=== PATIENT | female | born 1980 | race Caucasian/White ===

== ENCOUNTER 2017-03-03 22:39 | Emergency (ER) | payer OTHER ==
[~2017-03-03] VITALS: Ht 165.1 cm; Wt 97.7 kg
[~2017-03-03 22:39] MED LIST: "\\\"WATER PILL\\\"" PO; AMOXICILLIN/CL875 MG PO; ANUCORT-HC25 MG RE; ASPIRIN EC81 MG PO; AUGMENTIN500TAB PO; BUSPAR10 M1 PO; BUSPAR5 M1 PO; CIPRO500 MG OR; CLONAZEP ODT1 MG PO; CLONAZEPAM0.5 MG PO; COLACE100 MG PO; DOXYCYCL HYC100 MG PO; FLEXERIL OR; FLEXERIL PO; GABAPENTIN300 MG PO; GENTAMICIN SULF5 ML OP; GLIPIZIDE5 M2 PO; GLUCOTROL XL5 MG PO; HYDROCHLOROT12.5 MG PO; HYDROCORTISO2.51 EX; KEFLEX500 MG PO; LISINOP/HCTZ1 TA1 OR; LISINOP/HCTZ1 TAB PO; LISINOPRIL5 MG PO; LORTAB 5 OR; LORTAB 7.5 OR; LORTAB 7.5-3251 TAB PO; LOSARTAN POT25 MG PO; MELOXICAM15 MG PO; METFORMIN1000 MG PO; METFORMIN500 M1 OR; METFORMIN500 MG PO; MIRALAX3350 NF PO; NAPROSYN500 MG OR; NEURONTIN100 MG PO; NO HOME MEDS; ORPHENADRINE100 MG PO; PEPCID20 MG PO; PERCOCET 5/325M1 TAB PO; PRENATABS OR; PROVENTIL0.083 % IN; SINGULAIR PO; TESSALON PER100 MG PO; ULTRAM50 M1 PO; ZESTRIL5 M1 PO; ZOFRAN4 MG/TAB PO
[2017-03-04 00:10] VITALS: BP 152/93
== END 2017-03-04 00:10 | disposition home or self-care (01) | DRG 918 ==
LOC: ED 22:39
DX: T63.461A Toxic effect of venom of wasps, accidental (unintentional), initial encounter (principal)

== ENCOUNTER 2017-04-12 12:35 | Emergency (ER) | payer OTHER ==
[~2017-04-12] VITALS: Ht 165.1 cm; Wt 104.4 kg
[2017-04-12] MEDS ORDERED: TRAZODONE50 MG PO (15:57)
[2017-04-12] MEDS ORDERED: LOSARTAN POT25 MG PO (15:58)
[2017-04-12] MEDS ORDERED: NAPROSYN250 MG PO (15:58)
[2017-04-12] MEDS ORDERED: SERTRALINE HCL25 MG PO (15:58)
[2017-04-12] MEDS ORDERED: AMBIEN5 MG PO (15:58)
[2017-04-12] MEDS ORDERED: VENLAFAXINE H37.5 MG PO (15:59)
[2017-04-12] MEDS ORDERED: LORTAB 5-325 MG1 TAB PO (16:02)
[2017-04-12] MEDS ORDERED: MOTRIN800 MG PO (16:02)
[2017-04-12 16:04] VITALS: BP 130/78
== END 2017-04-12 16:08 | disposition home or self-care (01) | DRG 538 ==
LOC: ED 12:35
DX: S76.911A Strain of unspecified muscles, fascia and tendons at thigh level, right thigh, initial encounter (principal); I10 Essential (primary) hypertension; S96.911A Strain of unspecified muscle and tendon at ankle and foot level, right foot, initial encounter; E11.9 Type 2 diabetes mellitus without complications; F41.9 Anxiety disorder, unspecified; G89.29 Other chronic pain; M54.9 Dorsalgia, unspecified; W18.2XXA Fall in (into) shower or empty bathtub, initial encounter; Y93.E1 Activity, personal bathing and showering; Y92.002 Bathroom of unspecified non-institutional (private) residence as the place of occurrence of the external cause

== ENCOUNTER 2020-02-14 | Emergency (ER) | payer MEDICAID ==
[~2020-02-14] MED LIST changes: +AMBIEN5 MG PO; +BACTRIM DS1 TAB PO; +KEFLEX500 M1 PO; +KLONOPIN0.5 MG PO; +LORTAB 5-325 MG1 TAB PO; +MOTRIN800 MG PO; +NAPROSYN250 MG PO; +SERTRALINE HCL25 MG PO; +TRAZODONE50 MG PO; +VENLAFAXINE H37.5 MG PO
[2020-02-14] MEDS ORDERED: MECLIZINE25 MG PO ×2 (11:47)
[2020-02-14] MEDS ORDERED: CLONAZEPAM1 M1 PO (12:06)
== END 2020-02-14 12:00 | disposition home or self-care (01) | DRG 156 ==
DX: H92.02 Otalgia, left ear (principal); R42 Dizziness and giddiness; R51 Headache; I10 Essential (primary) hypertension; E11.9 Type 2 diabetes mellitus without complications; F17.210 Nicotine dependence, cigarettes, uncomplicated; Z79.84 Long term (current) use of oral hypoglycemic drugs

== ENCOUNTER 2020-06-19 19:00 | Emergency (ER) | payer MEDICAID ==
[~2020-06-19] VITALS: Ht 165.1 cm; Wt 86.4 kg
[~2020-06-19 19:00] MED LIST changes: +CLONAZEPAM1 M1 PO; +MECLIZINE25 MG PO
[2020-06-19] MEDS ORDERED: VOLTAREN - GENE75 MG PO (20:22)
[2020-06-19 20:38] VITALS: BP 149/77
== END 2020-06-19 20:38 | disposition home or self-care (01) ==
LOC: ED 19:00
DX: S90.31XA Contusion of right foot, initial encounter (principal); E11.9 Type 2 diabetes mellitus without complications; I10 Essential (primary) hypertension; F17.210 Nicotine dependence, cigarettes, uncomplicated; W20.8XXA Other cause of strike by thrown, projected or falling object, initial encounter; Y92.009 Unspecified place in unspecified non-institutional (private) residence as the place of occurrence of the external cause

== ENCOUNTER 2020-11-02 01:05 | Emergency (ER) | payer MEDICAID ==
[~2020-11-02] VITALS: Ht 165.1 cm; Wt 98.6 kg
[~2020-11-02 01:05] MED LIST changes: +VOLTAREN - GENE75 MG PO
[2020-11-02] MEDS ORDERED: BACTRIM DS1 TAB PO (01:27)
[2020-11-02] MEDS ORDERED: GLIPIZIDE5 MG PO (01:30)
[2020-11-02] MEDS ORDERED: XANAX0.25 MG PO (01:31)
[2020-11-02] MEDS ORDERED: METFORMIN500 M2 PO (01:31)
[2020-11-02 01:45] VITALS: BP 153/74
== END 2020-11-02 01:45 | disposition home or self-care (01) ==
LOC: ED 01:05
DX: L60.0 Ingrowing nail (principal); E11.9 Type 2 diabetes mellitus without complications; I10 Essential (primary) hypertension; F17.200 Nicotine dependence, unspecified, uncomplicated

== ENCOUNTER 2021-02-24 | Emergency (ER) | payer MEDICAID ==
[~2021-02-24] MED LIST changes: +GLIPIZIDE5 MG PO; +METFORMIN500 M2 PO; +XANAX0.25 MG PO
[2021-02-24 17:08] LABS: HEMATOCRIT 39.6 % (37.0-47.0); HEMOGLOBIN 12.7 g/dl (12.0-16.0); IMMATURE GRANULOCYTES 0.7 % (0.0-5.0); MEAN CELL VOLUME 83.7 fL CALC (80.0-100.0); MEAN CORPUSCULAR HGB 26.8 pG CALC (26.0-32.0); MEAN CORPUSCULAR HGB CONC 32.1 g/dL CAL (32.0-36.0); NEUT# 6.77 thou/uL (2.00-7.15); RED BLOOD COUNT 4.73 mill/uL (4.20-5.60); RED CELL DISTRI WIDTH 14.9 % (11.5-15.5)
[2021-02-24 17:52] LABS: ALKALINE PHOSPHATASE 97 u/l (38-126); BUN 5 mg/dL (7-17); BUN/CREATININE RATIO 12 (12-20 (CALC)); CARBON DIOXIDE 21 mmol/l (22-30); CHLORIDE 101 mmol/l (95-108); CREATININE 0.4 mg/dL (0.5-1.0); GFR > 60 ML/MIN (>=60 (CALC)); GFR FOR AFR.AMER. > 60 ML/MIN (>=60 (CALC)); POTASSIUM 4.4 mmol/l (3.5-5.1); SGOT/AST 30 u/l (14-36); TOTAL PROTEIN 7.5 g/dL (6.3-8.2)
[2021-02-24 17:53] LABS: ANION GAP 13 (6-22 (CALC)); BILIRUBIN, TOTAL 0.6 mg/dL (0.0-1.4); SODIUM 131 mmol/l (137-146)
[2021-02-24] MEDS ORDERED: TRULICITY0.75 MG/0. (18:24)
[2021-02-24] MEDS ORDERED: MECLIZINE25 MG PO (19:27)
== END 2021-02-24 19:35 | disposition home or self-care (01) ==
PROVIDERS: Emergency Medicine
DX: R42 Dizziness and giddiness (principal); E11.9 Type 2 diabetes mellitus without complications; I10 Essential (primary) hypertension; F17.200 Nicotine dependence, unspecified, uncomplicated; Z79.84 Long term (current) use of oral hypoglycemic drugs

== ENCOUNTER 2021-06-24 15:08 | Inpatient (IN) | payer MEDICAID ==
[~2021-06-24] VITALS: Ht 165.1 cm; Wt 105.0 kg
[~2021-06-24 15:08] MED LIST changes: +TRULICITY0.75 MG/0.
--- NOTE | 2021-06-24 15:10 | NUR ---
PATIENT SEEN IN OUTSIDE WAITING AREA. 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 ASKED TO RAISE EYEBROWS AND FOREHEAD SHOWS NO WRINKLE LINES ON RIGHT SIDE. PATIENT UPON SMILING HAS FROZEN RIGHT SIDE OF LIPS THAT ARE UNABLE TO MOVE. MD NOTIFIED OF PATIENT STATUS
--- NOTE | 2021-06-24 15:28 | NUR ---
MD IN ROOM PATIENT UNABLE TO FOLLOW COMMAND AND HAS DYSARTHRIA. STROKE ALERT CALLED AND PATIENT TAKEN TO CT SCAN
[2021-06-24 15:57] LABS: HEMATOCRIT 43.5 % (37.0-47.0); HEMOGLOBIN 14.1 g/dl (12.0-16.0); IMMATURE GRANULOCYTES 0.5 % (0.0-5.0); MEAN CELL VOLUME 83.2 fL CALC (80.0-100.0); MEAN CORPUSCULAR HGB CONC 32.4 g/dL CAL (32.0-36.0); NEUT# 6.27 thou/uL (2.00-7.15); RED BLOOD COUNT 5.23 mill/uL (4.20-5.60)
[2021-06-24 16:12] LABS: ALBUMIN 4.2 g/dL (3.2-5.0); ALKALINE PHOSPHATASE 107 u/l (38-126); ANION GAP 18 (6-22 (CALC)); BILIRUBIN, TOTAL 0.4 mg/dL (0.0-1.4); BUN 12 mg/dL (7-17); BUN/CREATININE RATIO 25 (12-20 (CALC)); CARBON DIOXIDE 22 mmol/l (22-30); CHLORIDE 95 mmol/l (95-108); CREATININE 0.5 mg/dL (0.5-1.0); ETHYL ALCOHOL 0 mg/dl (0-30); GFR > 60 ML/MIN (>=60 (CALC)); GFR FOR AFR.AMER. > 60 ML/MIN (>=60 (CALC)); LIPASE 360 u/l (23-300); MAGNESIUM 1.6 mg/dL (1.6-2.3); POTASSIUM 4.7 mmol/l (3.5-5.1); SGOT/AST 29 u/l (14-36); SODIUM 130 mmol/l (137-146); TOTAL PROTEIN 7.3 g/dL (6.3-8.2)
[2021-06-24 16:41] LABS: TSH, 3RD GENERATION 1.61 uIU/mL (0.47 - 4.68)
--- NOTE | 2021-06-24 17:02 | NUR ---
WATER OFFERD TO PATIENT
[2021-06-24 17:17] LABS: URINE BILIRUBIN - DIPSTICK NEGATIVE (NEGATIVE); URINE BLOOD DIPSTICK NEGATIVE (NEGATIVE); URINE COLOR YELLOW; URINE GLUCOSE - DIPSTICK >=1000 mg/dL (NEGATIVE); URINE KETONE NEGATIVE (NEGATIVE); URINE LEUK ESTERASE NEGATIVE (NEGATIVE); URINE PROTEIN - DIPSTICK NEGATIVE (NEG-TRACE); URINE SPECIFIC GRAVITY <=1.005; URINE UROBILINOGEN - DIPSTICK 0.2 E.U./dL (0.2)
[2021-06-24 17:20] LABS: URINE NITRITE - DIPSTICK NEGATIVE (Negative)
[2021-06-24 18:06] LABS: ANION GAP 14 (6-22 (CALC)); BUN 11 mg/dL (7-17); BUN/CREATININE RATIO 26 (12-20 (CALC)); CARBON DIOXIDE 22 mmol/l (22-30); CHLORIDE 99 mmol/l (95-108); CREATININE 0.4 mg/dL (0.5-1.0); GFR > 60 ML/MIN (>=60 (CALC)); GFR FOR AFR.AMER. > 60 ML/MIN (>=60 (CALC)); POTASSIUM 4.1 mmol/l (3.5-5.1); SODIUM 132 mmol/l (137-146)
--- NOTE | 2021-06-24 19:04 | NUR ---
A/O TO PERSON AND TIME,SPEECH IS CLEAR WITHOUT IMPAIRMENT.W/P/D SKIN SR NO ST T CHANGES.
--- NOTE | 2021-06-24 23:06 | NUR ---
PT ACCEPTS PHONE CALL FROM SPOUSE ANS SPEAKS TO HIM ABOUT HER STATUS APPARENTLY TO HIS SATISFACTION
--- NOTE | 2021-06-25 03:23 | NUR ---
W/P/D SKIN PT IS AWAKENED FOR ASSESSMENT SPEECH IS LEAR NO FOCAL DEFICITS GCS REMAINS 15
--- NOTE | 2021-06-25 06:00 | NUR ---
PT SLEEPING. VSS. ASSUMED CARE FOR REST OF SHIFT.
[2021-06-25 06:26] LABS: HEMATOCRIT 42.4 % (37.0-47.0); HEMOGLOBIN 13.9 g/dl (12.0-16.0); MEAN CORPUSCULAR HGB 27.5 pG CALC (26.0-32.0); MEAN CORPUSCULAR HGB CONC 32.8 g/dL CAL (32.0-36.0); RED BLOOD COUNT 5.05 mill/uL (4.20-5.60); RED CELL DISTRI WIDTH 12.9 % (11.5-15.5)
[2021-06-25 06:32] LABS: ANION GAP 12 (6-22 (CALC)); BUN 11 mg/dL (7-17); BUN/CREATININE RATIO 26 (12-20 (CALC)); CALCULATED LDLCHOLESTEROL 142 mg/dL (62-129 (CALC)); CARBON DIOXIDE 26 mmol/l (22-30); CHLORIDE 102 mmol/l (95-108); CHOLESTEROL HDL RATIO 5.2 (<4.4 (CALC)); CREATININE 0.4 mg/dL (0.5-1.0); GFR > 60 ML/MIN (>=60 (CALC)); GFR FOR AFR.AMER. > 60 ML/MIN (>=60 (CALC)); HDL CHOLESTEROL 44 mg/dL (>=40); MAGNESIUM 1.6 mg/dL (1.6-2.3); SODIUM 135 mmol/l (137-146); TOTAL CHOLESTEROL 231 mg/dl (0-199); TOTAL TRIGLYCERIDES 225 mg/dl (30-149); VLDL CHOLESTROL 45 mg/dl (1-41 (CALC))
--- NOTE | 2021-06-25 07:11 | NUR ---
REPORT TO FEBRUARY, RN
--- NOTE | 2021-06-25 07:30 | NUR ---
PT APPEARS TO BE SLEEPING, WAKEN FOR ACCUCHECK. INSULIN GIVEN PER SS. NO CONCERNS VOICED. ALL ITEMS WITHIN REACH.
--- NOTE | 2021-06-25 09:55 | NUR ---
PT RETURNED FROM MRI, STABLE ON MONITOR. ALL ITEMS WITHIN REACH.
[2021-06-25] MEDS ORDERED: JANUVIA100 MG PO (11:35)
[2021-06-25] MEDS ORDERED: VENLAFAXINE HCL75 M1 PO (11:36)
--- NOTE | 2021-06-25 11:36 | NUR ---
REPORT TO JOHN
[2021-06-25] MEDS ORDERED: ZESTRIL5 M1 PO (11:37)
[2021-06-25] MEDS ORDERED: GLIPIZIDE10 M3 PO (11:37)
[2021-06-25] MEDS ORDERED: ALPRAZOLAM0.5 M2 PO (11:39)
--- NOTE | 2021-06-25 11:50 | NUR ---
PT ALERT AND ORIENTED. VITALS AND ASSESSMENT DONE. S1 AND S2 HEARD UPON ASCULTATION. BOWELS ACTIVE IN ALL 4 QUADRANTS. SKIN WARM AND DRY. PEDAL PULSES STRONG BILATERALLY. LUNGS SOUNDS CLEAR BILATERALLY. IV PATENT AND HEALTHY. ORIENTED TO ROOM AND CALL GOMEZ SYSTEM. NO DISTRESS NOTED. CALL LIGHT WITHIN REACH.
--- NOTE | 2021-06-25 14:00 | NUR ---
PT WANTED TO TAKE SHOWER. SHOWER GIVEN. NOW IN BED. NO DISTRESS NOTED. CALL LIGHT WITHIN REACH.
[2021-06-25 14:40] VITALS: BP 148/87
--- NOTE | 2021-06-25 16:00 | NUR ---
PT SLEEP. NO DISTRES NOTED. CALL LIGHT WITHIN REACH.
[2021-06-25 19:00] VITALS: BP 150/79
--- NOTE | 2021-06-25 21:00 | NUR ---
PHYSICAL ASSESMENT COMPLETE. PT CURRENTLY DENIES PAIN OR DISCOMFORT. HOME MEDICATIONS RECONCILED WITH [facility] AND [facility]. SCHEDULED MEDICATIONS AND PRN MEDICATION ADMINISTERED, SEE E-MAR. PT DENIES ANY NEEDS AT THIS TIME. PLAN OF CARE REVIEWED, PT DENIES QUESTIONS, VERBALIZES UNDERSTANDING. ITEMS WITHIN REACH, BED LOCKED IN LOW POSITION W/ BEDRAILS UP X2. CALL GOMEZ WITHIN REACH, AGREES TO CALL PRN.
--- NOTE | 2021-06-26 | NUR ---
PT LAYING IN BED WITH EYES CLOSED, APPEARS TO BE SLEEPING, APPEARS COMFORTABLE AND IN NO DISTRESS. RESPIRATIONS REGULAR AND UNLABORED. ITEMS REMAIN WITHIN REACH, CALL GOMEZ REMAINS WITHIN REACH. BED REMAINS LOCKED AND IN LOW POSITION WITH BEDRAILS UP X2. WILL CONTINUE TO MONITOR.
--- NOTE | 2021-06-26 03:55 | NUR ---
PT RESTING IN BED, NO SIGNS OF DISTRESS NOTED, RESP EVEN AND UNLABORED. PT VOICES NO NEEDS OR COMPLAINTS AT THIS TIME. CALL LIGHT IN REACH, CONTINUE TO MONITOR.
[2021-06-26 04:00] VITALS: BP 129/80
[2021-06-26 05:51] LABS: HEMATOCRIT 39.1 % (37.0-47.0); HEMOGLOBIN 12.6 g/dl (12.0-16.0); MEAN CELL VOLUME 84.6 fL CALC (80.0-100.0); MEAN CORPUSCULAR HGB 27.3 pG CALC (26.0-32.0); MEAN CORPUSCULAR HGB CONC 32.2 g/dL CAL (32.0-36.0); RED BLOOD COUNT 4.62 mill/uL (4.20-5.60); RED CELL DISTRI WIDTH 13.1 % (11.5-15.5)
[2021-06-26 06:10] LABS: ANION GAP 13 (6-22 (CALC)); BUN 15 mg/dL (7-17); BUN/CREATININE RATIO 32 (12-20 (CALC)); CARBON DIOXIDE 23 mmol/l (22-30); CHLORIDE 100 mmol/l (95-108); CREATININE 0.5 mg/dL (0.5-1.0); GFR > 60 ML/MIN (>=60 (CALC)); GFR FOR AFR.AMER. > 60 ML/MIN (>=60 (CALC)); MAGNESIUM 1.5 mg/dL (1.6-2.3); POTASSIUM 4.2 mmol/l (3.5-5.1); SODIUM 132 mmol/l (137-146)
--- NOTE | 2021-06-26 07:08 | NUR ---
PT IN HER CHAIR WHEN ENTERED ROOM. VITALS AND ASSESSMENT DONE. PT IS ALERT AND ORIENTED. S1 AND S2 HEARD UPON ASCULTATION. LUNGS CLEAR BILATERALLY. BOWELS ACTIVE IN ALL 4 QUADRANTS. SKIN WARM AND DRY. IV PATENT AND HEALTHY, RAC NS AT 100. PEDAL PULSES STRONG BILATERALLY. NO PAIN REPORTED. CALL LIGHT WITHIN REACH.
[2021-06-26 07:36] VITALS: BP 152/85
--- NOTE | 2021-06-26 09:57 | NUR ---
Pt received reclined in bed resting. Pt on room air. She is mildly dysarthric with word-finding difficulties appreciated as well as, increased processing time. Pt answered abstract yes/no questions with 100% accuracy. She named an average of 5 words in a given category in 1 minute during generative naming tasks. When given a word definition for a target word, patient was able to independently provide the target word in 10/15 opportunities. Therapy session cut short d/t pt having ECHO completed. Pt with significant difficulties understanding POC. Pt asking if she was "staying here forever?" Therapist explained to patient POC is based on medical condition, MD, therapy recommendations, and case management. Discussed with case management concerns for discharge home at this time as patient is confused. WRESTLING COACH will continue to follow. Recommend discharge to inpatient rehabilitation at this time. Pt would require 24 hour supervision at home and likely would be unable to return to work upon discharge.
--- NOTE | 2021-06-26 10:15 | NUR ---
DR. GIRALDO AND Leonidas WRIGHT AT BEDSIDE DISCUSSING POC.
[2021-06-26 10:31] VITALS: BP 156/92
--- NOTE | 2021-06-26 12:00 | NUR ---
PT IN BED. NO DISTRESS NOTED. CALL LIGHT WITHIN REACH.
--- NOTE | 2021-06-26 12:31 | NUR ---
PT ON VIDEO WITH THE NEUROLOGIST DISCUSSING POC.
--- NOTE | 2021-06-26 13:38 | NUR ---
PT WENT DOWN TO RADIOLOGY IN STABLE CONDITION ACCOMPINIED BY STAFF.
[2021-06-26 14:30] VITALS: BP 150/94
--- NOTE | 2021-06-26 16:05 | NUR ---
PT IN ROOM. CALL LIGHT WITHIN REACH. NO DISTRESS NOTED. NO PAIN INDICATED.
[2021-06-26 19:00] VITALS: BP 152/76
--- NOTE | 2021-06-26 20:00 | NUR ---
PHYSICAL ASSESMENT COMPLETE. PT CURRENTLY DENIES PAIN OR DISCOMFORT. SCHEDULED MEDICATIONS AND PRN MEDICATION ADMINISTERED, SEE E-MAR. PT DENIES ANY NEEDS AT THIS TIME. PLAN OF CARE REVIEWED, PT DENIES QUESTIONS, VERBALIZES UNDERSTANDING. ITEMS WITHIN REACH, BED LOCKED IN LOW POSITION W/ BEDRAILS UP X2. CALL GOMEZ WITHIN REACH, AGREES TO CALL PRN.
[2021-06-27] VITALS: BP 158/89
[2021-06-27 04:00] VITALS: BP 162/79
[2021-06-27 06:28] LABS: HEMATOCRIT 40.1 % (37.0-47.0); HEMOGLOBIN 12.9 g/dl (12.0-16.0); MEAN CELL VOLUME 83.7 fL CALC (80.0-100.0); MEAN CORPUSCULAR HGB 26.9 pG CALC (26.0-32.0); MEAN CORPUSCULAR HGB CONC 32.2 g/dL CAL (32.0-36.0); RED BLOOD COUNT 4.79 mill/uL (4.20-5.60); RED CELL DISTRI WIDTH 12.9 % (11.5-15.5)
[2021-06-27 06:41] LABS: ANION GAP 13 (6-22 (CALC)); BUN 12 mg/dL (7-17); BUN/CREATININE RATIO 28 (12-20 (CALC)); CARBON DIOXIDE 25 mmol/l (22-30); CHLORIDE 97 mmol/l (95-108); CREATININE 0.4 mg/dL (0.5-1.0); GFR > 60 ML/MIN (>=60 (CALC)); GFR FOR AFR.AMER. > 60 ML/MIN (>=60 (CALC)); MAGNESIUM 1.6 mg/dL (1.6-2.3); POTASSIUM 4.4 mmol/l (3.5-5.1); SODIUM 131 mmol/l (137-146)
--- NOTE | 2021-06-27 07:10 | NUR ---
REPORT RECEIVED FROM SHEILA TRIPP
--- NOTE | 2021-06-27 08:15 | NUR ---
PHYSICAL THERAPY AT BEDSIDE WORKING WITH PT.
--- NOTE | 2021-06-27 08:30 | NUR ---
PT RESTING AT BEDSIDE,A&O X3;VS OBTAINED AND ASSESSMENT COMPLETED;PT DENIES ANY CURRENT PAIN OR DISCOMFORTS,PAIN SCALE AND REPORTING EDUCATED;RESPIRATIONS EVEN AND UNLABORED ON RA,CLEAR LUNG SOUNDS;ABDOMEN SOFT ON PALPATION AND ACTIVE IN ALL 4 QUADRANTS;STRONG PEDAL PULSES;SKIN INTACT;TELE MONITORING IN PLACE;RIGHT SIDED WEAKNESS R/T HX CVA, NIH COMPLETED AT THIS TIME;ACCUCHECK 358, PT COVERED WITH SLIDING SCALE INSULIN PER ORDER;PT DENIES ANY ADDITIONAL NEEDS AND IS ENCOURAGED TO CALL FOR ASSISTANCE IF NEEDED;FALL PRECAUTIONS IN PLACE WITH BED IN THE LOWEST POSITION AND CALL LIGHT IN REACH;WILL CONTINUE TO MONITOR
[2021-06-27 08:31] VITALS: BP 149/95
--- NOTE | 2021-06-27 09:42 | NUR ---
AT BEDSIDE DISCUSSING POC.
--- NOTE | 2021-06-27 10:33 | NUR ---
SPEECH AT BEDSIDE
--- NOTE | 2021-06-27 11:27 | NUR ---
PT NOTE Patient seated as entered room, patient agreed to participate in therapy session. Sit>stand (independant), static standing balance patien demonstrated slight loss of balance. Ambulated through out room x 15 ft x 3, (CGA), slight deviation to right as gait trained. loss of balance x 1. Stand>sit (Inependant). At bed side patient executed long arc quads x 20, hip flexion x 20. Jorge table and call regan by patient side as exited room.
--- NOTE | 2021-06-27 11:32 | NUR ---
Pt received laying in bed A&O x3. Pt seen with OT Nazia Campos OTR/L. Pt continues to present with dysarthric speech and expressive and receptive language abilities. She is currentrly refusing a rehab placement d/t needs for returning to work. Pt completed single word reading tasks with 35% accuracy and moderate cues for phonemic productions. She completed word finding tasks with constraints with with 0% accuracy. Vocational rehabilition goals were targeted with practice for taking orders and recalling requested items. Winifred recalled 1/3 items accuractely. She was given srategies to use such as writing and visual cues for improved customer interaction. Winifred was also given a model statements for self-advocation at work. Winifred participated in discussion with the BRIQUETTE MOLDER and OT about the benefits of Rehab and her current options to improve/reduce financial stressors in order to seek out therapy for her current deficits. Winifred expressed understanding and agreed to reach out to family members for help. She also expressed understanding of the importance of outptient services to compensate for the lack of intensive rehab availability.
--- NOTE | 2021-06-27 11:40 | NUR ---
PT RESTING IN SEMI FOWLERS POSITION;RESPIRATIONS EVEN AND UNLABORED ON RA;PT DENIES ANY CURRENT PAIN OR NEEDS;TELE MONITORING IN PLACE;IV SITE PATENT INFUSING NS @ 20ML/HR,SITE APPEARS HEALTHY;ACCUCHECK 319, PT COVERED WITH SLIDING SCALE INSULIN;PT DENIES ANY ADDITIONAL NEEDS;ENCOURAGED TO CALL FOR ASSISTANCE IF NEEDED;CALL LIGHT IN REACH;WILL CONTINUE TO MONITOR
[2021-06-27 12:11] VITALS: BP 160/91
--- NOTE | 2021-06-27 15:15 | NUR ---
Winifred received at bedside. Pt seen with Betty Sauceda, CCC-NEEDLE CONTROL CHENILLER and cog assessments reveal + for brocas aphasia and pt reported inability to read. Pt demonstrated ability to read with mod cueing and ~50% accuracy. Winifred completed Sup > sit I, retrieved her soap and underwear, and ambulated ~10 feet to shower and completed independently. Discussed d/c planning alternatives as pt is refusing ECF d/t financial constraints. Patient also offered memory compensatory strategies to apply if she absolutely MUST return to work, although clinician strongly recommended she does not at this moment d/t direct interaction with franky carrillo in deli section. `
[2021-06-27 15:19] VITALS: BP 129/73
[2021-06-27] MEDS ORDERED: PLAVIX75 MG PO (15:23)
[2021-06-27] MEDS ORDERED: ASPIRIN 81 LOW81 MG PO (15:23)
[2021-06-27] MEDS ORDERED: ATORVASTATIN CA40 MG PO (15:23)
[2021-06-27] MEDS ORDERED: NOVOLIN N100 UNIT/4 SC (15:24)
--- NOTE | 2021-06-27 16:50 | NUR ---
PT RESTING IN SEMI FOWLERS POSITION;RESPIRATIONS EVEN AND UNLABORED ON RA;PT DENIES ANY CURRENT PAIN OR DISCOMFORTS;TELE MONITORING IN PLACE;IV SITE PATENT AND INFUSING NS WITH EASE PER ORDER;ACCUCHECK 337, PT COVERED WITH SLIDING SCALE INSULIN PER ORDER;PT EDUCATED ON PLANS TO D/C HOME AND VERBALIZES UNDERSTANDING;PT ENCOURAGED TO CALL FOR ASSISTANCE IF NEEDED;CALL LIGHT IN REACH;WILL CONTINUE TO MONITOR
--- NOTE | 2021-06-27 17:00 | NUR ---
ALL DISCHARGE INSTRUCTIONS PROVIDED TO PT AND DISCUSSED IN DEPTH WITH SPOUSE ON THE PHONE;PT INSTRUCTED TO TAKE ALL MEDICATIONS PRESCRIBED AND RX SENT TO [facility];PT ALSO INSTRUCTED TO FOLLOW UP WITH [facility],PT AND OT;APPT SCHEDULED FOR 06/29/21 WITH ;PT VERBALIZES UNDERSTANDING AND DENIES ANY ADDITIONAL QUESTIONS OR NEEDS;IV SITE REMOVED WITH CATHETER INTACT AND TELE MONITORING D/C;WHEELCHAIR TO BE PROVIDED FOR D/C HOME;SPOUSE TO TRANSPORT PT HOME;WILL CONTINUE TO MONITOR
--- NOTE | 2021-06-27 17:46 | NUR ---
CALL PLACED TO TOWEL HEMMER REGARDING HOME MEDICATIONS IN PHARMACY FOR D/C HOME.CALL RECEIVED FROM FARIHA CLAROS. PER HARLAN PT CAN TAKE NIGHT MEDICATIONS PRIOR TO D/C HOME. PT TO BE MEDICATED WITH SCHEDULED LEVEMIR,EFFEXOR, LIPITOR AND PRN XANAX PER REQUEST.PT ALSO EDUCATED TO PICK HOME MEDICATIONS FROM PHARMACY TOMORROW MORNING 06/28/21
--- NOTE | 2021-06-27 18:20 | NUR ---
Discharge instructions given. Patient verbalizes understanding of same. Discharged in stable condition via Wheelchair to Home with family. All belongings sent with pt. PT TRANSPORTED TO [facility] VIA ACCOMPANIED BY DEMETRIO PAYTON FOR D/C HOME;ALL BELONGING LEFT WITH.SPOUSE TO TRANSPORT PT HOME.
== END 2021-06-27 18:20 | disposition home health service (06) | DRG 64 ==
LOC: ED 15:08 → ED-I 17:55 → ED 18:17 → ED-I 18:18 → MS2 06-25 11:30
PROVIDERS: Nurse Practitioner; ADMIT Hospitalist; ATTEND Internal Medicine
DX: I63.81 Other cerebral infarction due to occlusion or stenosis of small artery (principal); G93.41 Metabolic encephalopathy; E87.1 Hypo-osmolality and hyponatremia; E11.65 Type 2 diabetes mellitus with hyperglycemia; I10 Essential (primary) hypertension; M32.9 Systemic lupus erythematosus, unspecified; R47.1 Dysarthria and anarthria; R29.810 Facial weakness; H53.8 Other visual disturbances; R20.8 Other disturbances of skin sensation; G83.11 Monoplegia of lower limb affecting right dominant side; R29.703 NIHSS score 3; E83.42 Hypomagnesemia; Z79.84 Long term (current) use of oral hypoglycemic drugs; Z20.822 Contact with and (suspected) exposure to COVID-19
CPT/HCPCS: J1650; J3475; Q9967

== ENCOUNTER 2022-09-01 00:30 | Emergency (ER) | payer OTHER ==
[~2022-09-01] VITALS: Ht 165.1 cm; Wt 90.0 kg
[~2022-09-01 00:30] MED LIST changes: +ALPRAZOLAM0.5 M2 PO; +ASPIRIN 81 LOW81 MG PO; +ATORVASTATIN CA40 MG PO; +GLIPIZIDE10 M3 PO; +JANUVIA100 MG PO; +NOVOLIN N100 UNIT/4 SC; +PLAVIX75 MG PO; +VENLAFAXINE HCL75 M1 PO
[2022-09-01 00:47] VITALS: BP 153/76
[2022-09-01 00:50] VITALS: BP 140/69
[2022-09-01 00:55] VITALS: BP 139/69
[2022-09-01 01:00] VITALS: BP 147/74
[2022-09-01] MEDS ORDERED: KEFLEX500 MG PO ×2 (01:08→01:35)
[2022-09-01] MEDS ORDERED: BACTRIM DS1 TAB PO ×2 (01:08→01:35)
[2022-09-01] MEDS ORDERED: LORTAB 1010 MG PO ×2 (01:10→01:35)
[2022-09-01 01:29] VITALS: BP 147/74
== END 2022-09-01 01:39 | disposition home or self-care (01) ==
LOC: ED 00:30
DX: T87.43 Infection of amputation stump, right lower extremity (principal); E11.9 Type 2 diabetes mellitus without complications; I10 Essential (primary) hypertension; Y83.5 Amputation of limb(s) as the cause of abnormal reaction of the patient, or of later complication, without mention of misadventure at the time of the procedure; Z89.511 Acquired absence of right leg below knee; Z79.84 Long term (current) use of oral hypoglycemic drugs; Z79.4 Long term (current) use of insulin

== ENCOUNTER 2022-10-14 18:33 | Emergency (ER) | payer OTHER ==
[~2022-10-14] VITALS: Ht 165.1 cm; Wt 90.0 kg
[2022-10-14] VITALS (8 sets, daily range): BP systolic 118–142; BP diastolic 61–79
[~2022-10-14 18:33] MED LIST changes: +LORTAB 1010 MG PO
[2022-10-14 22:53] LABS: HEMATOCRIT 38.2 % (37.0-47.0); HEMOGLOBIN 11.8 g/dl (12.0-16.0); IMMATURE GRANULOCYTES 0.2 % (0.0-5.0); MEAN CORPUSCULAR HGB 23.2 pG CALC (26.0-32.0); MEAN CORPUSCULAR HGB CONC 30.9 g/dL CAL (32.0-36.0); NEUT# 9.05 thou/uL (2.00-7.15); RED BLOOD COUNT 5.08 mill/uL (4.20-5.60); RED CELL DISTRI WIDTH 15.1 % (11.5-15.5)
[2022-10-14 23:00] LABS: MEAN CELL VOLUME 75.2 fL CALC (80.0-100.0)
[2022-10-14 23:20] LABS: ALBUMIN 4.2 g/dL (3.2-5.0); ALKALINE PHOSPHATASE 140 u/l (38-126); ANION GAP 12 (6-22 (CALC)); BUN 16 mg/dL (7-17); BUN/CREATININE RATIO 24 (12-20 (CALC)); CARBON DIOXIDE 30 mmol/l (22-30); CHLORIDE 100 mmol/l (95-108); CREATININE 0.7 mg/dL (0.5-1.0); GFR FOR AFR.AMER. > 60 ML/MIN (>=60 (CALC)); GFR OTHER RACES > 60 ML/MIN (>=60 (CALC)); POTASSIUM 4.3 mmol/l (3.5-5.1); SGOT/AST 26 u/l (14-36); SODIUM 138 mmol/l (137-146); TOTAL PROTEIN 7.7 g/dL (6.3-8.2)
[2022-10-14 23:27] LABS: BILIRUBIN, TOTAL 0.2 mg/dL (0.0-1.4)
[2022-10-14 23:36] LABS: ETHYL ALCOHOL 0 mg/dl (0-30)
[2022-10-15 00:42] VITALS: BP 141/61
[2022-10-15] MEDS ORDERED: LORTAB 1010 MG PO (00:46)
== END 2022-10-15 00:50 | disposition home or self-care (01) ==
LOC: ED 18:33
PROVIDERS: Emergency Medicine
DX: S80.11XA Contusion of right lower leg, initial encounter (principal); E11.9 Type 2 diabetes mellitus without complications; I10 Essential (primary) hypertension; W18.39XA Other fall on same level, initial encounter; Z86.718 Personal history of other venous thrombosis and embolism; Z89.511 Acquired absence of right leg below knee; Z79.84 Long term (current) use of oral hypoglycemic drugs; Z79.4 Long term (current) use of insulin

== ENCOUNTER 2023-06-09 01:32 | Emergency (ER) | payer OTHER ==
[2023-06-09] VITALS (14 sets, daily range): BP systolic 80–137; BP diastolic 37–72
[~2023-06-09] VITALS: Ht 165.1 cm; Wt 100.0 kg
[2023-06-09 02:23] LABS: BASO% 0.2 % (0-3); EOS% 1.2 % (0-8); HEMATOCRIT 37.8 % (37.0-47.0); HEMOGLOBIN 11.2 g/dl (12.0-16.0); IMMATURE GRANULOCYTES 0.9 % (0.0-5.0); LYMPH% 13.6 % (15-41); MEAN CELL VOLUME 74.3 fL CALC (80.0-100.0); MEAN CORPUSCULAR HGB CONC 29.6 g/dL CAL (32.0-36.0); MONO% 10.3 % (2-13); NEUT# 12.77 thou/uL (2.00-7.15); NEUT% 73.8 % (42-76); RED BLOOD COUNT 5.09 mill/uL (4.20-5.60); RED CELL DISTRI WIDTH 14.7 % (11.5-15.5)
[2023-06-09 02:24] LABS: ALBUMIN 4.1 g/dL (3.2-5.0); ALKALINE PHOSPHATASE 140 u/l (38-126); AMYLASE 94 u/l (30-110); BUN 10 mg/dL (7-17); BUN/CREATININE RATIO 13 (12-20 (CALC)); CARBON DIOXIDE 29 mmol/l (22-30); CHLORIDE 93 mmol/l (95-108); CREATININE 0.8 mg/dL (0.5-1.0); GFR FOR AFR.AMER. > 60 ML/MIN (>=60 (CALC)); GFR OTHER RACES > 60 ML/MIN (>=60 (CALC)); LIPASE 78 u/l (23-300); SGOT/AST 24 u/l (14-36); SODIUM 134 mmol/l (137-146); TOTAL PROTEIN 7.6 g/dL (6.3-8.2)
[2023-06-09] MEDS ORDERED: CLOPIDOGREL75 MG PO (02:24)
[2023-06-09] MEDS ORDERED: CETIRIZINE10 MG PO (02:24)
[2023-06-09] MEDS ORDERED: GABAPENTIN100 MG PO (02:25)
[2023-06-09] MEDS ORDERED: FAMOTIDINE20 M1 PO (02:25)
[2023-06-09] MEDS ORDERED: GEMTESA75 MG PO ×2 (02:26→02:35)
[2023-06-09] MEDS ORDERED: HUMALOG100 UNIT SC (02:27)
[2023-06-09] MEDS ORDERED: MICROZIDE PO (02:28)
[2023-06-09] MEDS ORDERED: LIPITOR80 M1 PO (02:32)
[2023-06-09] MEDS ORDERED: FARXIGA10 MG PO (02:33)
[2023-06-09 02:34] LABS: ANION GAP 15 (6-22 (CALC)); BILIRUBIN, TOTAL 0.5 mg/dL (0.02-1.3); POTASSIUM 3.2 mmol/l (3.5-5.1)
[2023-06-09] MEDS ORDERED: LASIX40 MG PO (02:34)
[2023-06-09] MEDS ORDERED: CONSTULOSE10 GM/15 M PO (02:36)
[2023-06-09] MEDS ORDERED: HUMALOG100 UNIT/M SC (02:36)
[2023-06-09] MEDS ORDERED: SUBVENITE150 MG PO (02:37)
[2023-06-09] MEDS ORDERED: TOPROL XL25 M1 PO (02:38)
[2023-06-09] MEDS ORDERED: LANTUS SOL100 UNIT/M SC (02:38)
[2023-06-09] MEDS ORDERED: SPIRONOLACTONE25 MG PO (02:38)
[2023-06-09] MEDS ORDERED: VENLAFAXINE HCL75 M1 PO (02:39)
[2023-06-09 03:56] LABS: URINE BILIRUBIN - DIPSTICK NEGATIVE (NEGATIVE); URINE COLOR YELLOW; URINE GLUCOSE - DIPSTICK 500 mg/dL (NEGATIVE); URINE KETONE Negative (NEGATIVE); URINE SPECIFIC GRAVITY <=1.005
[2023-06-09 03:57] LABS: URINE BLOOD DIPSTICK NEGATIVE (NEGATIVE); URINE LEUK ESTERASE TRACE (NEGATIVE); URINE NITRITE - DIPSTICK NEGATIVE (Negative); URINE PROTEIN - DIPSTICK NEGATIVE (NEG-TRACE); URINE UROBILINOGEN - DIPSTICK 0.2 E.U./dL (0.2)
[2023-06-09] MEDS ORDERED: LOMOTIL2.5 MG PO (04:12)
[2023-06-09] MEDS ORDERED: BACTRIM DS1 TAB PO (04:12)
[2023-06-09] MEDS ORDERED: ONDANSETRON4 MG PO (04:12)
[2023-06-09] MEDS ORDERED: VANCOMYCIN HCL125 M1 PO (06:29)
[2023-06-09] MEDS ORDERED: METRONIDAZOLE500 MG PO (06:33)
== END 2023-06-09 07:20 | disposition home or self-care (01) ==
LOC: ED 01:32
PROVIDERS: Emergency Medicine
DX: A04.72 Enterocolitis due to Clostridium difficile, not specified as recurrent (principal); I10 Essential (primary) hypertension; E11.9 Type 2 diabetes mellitus without complications; Z89.511 Acquired absence of right leg below knee; Z79.4 Long term (current) use of insulin; Z20.822 Contact with and (suspected) exposure to COVID-19
CPT/HCPCS: Q9967

== ENCOUNTER 2023-07-05 10:48 | Emergency (ER) | payer OTHER ==
[~2023-07-05] VITALS: Ht 165.1 cm; Wt 100.0 kg
[~2023-07-05 10:48] MED LIST changes: +CETIRIZINE10 MG PO; +CLOPIDOGREL75 MG PO; +CONSTULOSE10 GM/15 M PO; +FAMOTIDINE20 M1 PO; +FARXIGA10 MG PO; +GABAPENTIN100 MG PO; +GEMTESA75 MG PO; +HUMALOG100 UNIT SC; +HUMALOG100 UNIT/M SC; +LANTUS SOL100 UNIT/M SC; +LASIX40 MG PO; +LIPITOR80 M1 PO; +LOMOTIL2.5 MG PO; +METRONIDAZOLE500 MG PO; +MICROZIDE PO; +ONDANSETRON4 MG PO; +SPIRONOLACTONE25 MG PO; +SUBVENITE150 MG PO; +TOPROL XL25 M1 PO; +VANCOMYCIN HCL125 M1 PO
[2023-07-05 12:24] LABS: BASO% 0.3 % (0-3); EOS% 2.6 % (0-8); HEMATOCRIT 36.6 % (37.0-47.0); HEMOGLOBIN 10.5 g/dl (12.0-16.0); IMMATURE GRANULOCYTES 0.2 % (0.0-5.0); LYMPH% 18.4 % (15-41); MEAN CELL VOLUME 76.6 fL CALC (80.0-100.0); MEAN CORPUSCULAR HGB CONC 28.7 g/dL CAL (32.0-36.0); MONO% 7.2 % (2-13); NEUT# 8.66 thou/uL (2.00-7.15); NEUT% 71.3 % (42-76); RED BLOOD COUNT 4.78 mill/uL (4.20-5.60); RED CELL DISTRI WIDTH 15.7 % (11.5-15.5)
[2023-07-05 12:34] LABS: URINE BILIRUBIN - DIPSTICK Negative (NEGATIVE); URINE BLOOD DIPSTICK Negative (NEGATIVE); URINE GLUCOSE - DIPSTICK 500 mg/dL (NEGATIVE); URINE KETONE Negative (NEGATIVE); URINE LEUK ESTERASE Trace (NEGATIVE); URINE NITRITE - DIPSTICK Negative (Negative); URINE PROTEIN - DIPSTICK Negative (NEG-TRACE); URINE SPECIFIC GRAVITY <=1.005; URINE UROBILINOGEN - DIPSTICK 0.2 E.U./dL (0.2)
[2023-07-05 12:35] LABS: URINE COLOR Yellow
[2023-07-05 12:47] LABS: ALBUMIN 3.8 g/dL (3.2-5.0); ALKALINE PHOSPHATASE 140 u/l (38-126); ANION GAP 14 (6-22 (CALC)); BILIRUBIN, TOTAL 0.3 mg/dL (0.02-1.3); BUN 11 mg/dL (7-17); BUN/CREATININE RATIO 16 (12-20 (CALC)); CARBON DIOXIDE 24 mmol/l (22-30); CHLORIDE 102 mmol/l (95-108); CREATININE 0.7 mg/dL (0.5-1.0); GFR FOR AFR.AMER. > 60 ML/MIN (>=60 (CALC)); GFR OTHER RACES > 60 ML/MIN (>=60 (CALC)); POTASSIUM 3.5 mmol/l (3.5-5.1); SGOT/AST 27 u/l (14-36); SODIUM 136 mmol/l (137-146); TOTAL PROTEIN 6.9 g/dL (6.3-8.2)
[2023-07-05] MEDS ORDERED: OMNI-PAC300 MG PO (13:41)
[2023-07-05 14:21] VITALS: BP 117/51
== END 2023-07-05 14:21 | disposition home or self-care (01) ==
LOC: ED 10:48
PROVIDERS: Family Medicine
DX: R30.0 Dysuria (principal); R53.83 Other fatigue; I10 Essential (primary) hypertension; E11.9 Type 2 diabetes mellitus without complications; Z95.1 Presence of aortocoronary bypass graft; Z86.718 Personal history of other venous thrombosis and embolism; Z89.511 Acquired absence of right leg below knee; Z79.4 Long term (current) use of insulin; Z20.822 Contact with and (suspected) exposure to COVID-19

== ENCOUNTER 2024-06-01 05:48 | Emergency (ER) | payer OTHER ==
[~2024-06-01] VITALS: Ht 165.1 cm; Wt 98.0 kg
[~2024-06-01 05:48] MED LIST changes: +LORTAB 5/3255 MG PO; +NAPROXEN500 MG PO; +OMNI-PAC300 MG PO
[2024-06-01 06:12] LABS: URINE BILIRUBIN - DIPSTICK Negative (NEGATIVE); URINE BLOOD DIPSTICK Negative (NEGATIVE); URINE COLOR Yellow; URINE GLUCOSE - DIPSTICK >=1000 mg/dL (NEGATIVE); URINE KETONE Negative (NEGATIVE); URINE LEUK ESTERASE Negative (NEGATIVE); URINE NITRITE - DIPSTICK Negative (Negative); URINE PH 5.5 (4.5-8.0); URINE PROTEIN - DIPSTICK Negative (NEG-TRACE); URINE UROBILINOGEN - DIPSTICK 0.2 E.U./dL (0.2)
[2024-06-01] MEDS ORDERED: BACTRIM DS1 TAB PO (06:29)
[2024-06-01 06:36] VITALS: BP 129/71
== END 2024-06-01 06:45 | disposition home or self-care (01) ==
LOC: ED 05:48
PROVIDERS: Family Medicine
DX: N30.90 Cystitis, unspecified without hematuria (principal); E11.65 Type 2 diabetes mellitus with hyperglycemia; I10 Essential (primary) hypertension; Z86.73 Personal history of transient ischemic attack (TIA), and cerebral infarction without residual deficits; Z79.4 Long term (current) use of insulin

== ENCOUNTER 2024-07-24 00:07 | Emergency (ER) | payer OTHER ==
[~2024-07-24] VITALS: Ht 165.1 cm; Wt 93.0 kg
[2024-07-24] VITALS (9 sets, daily range): BP systolic 116–163; BP diastolic 63–78
[2024-07-24] MEDS ORDERED: SODIUM CHLORIDE 0.9% 1,000 ML IV STA (00:32)
[2024-07-24] MEDS ORDERED: PROMETHAZINE HCL 25 MG/ML AMP IV ONE (00:35)
[2024-07-24 00:58] LABS: BASO% 0.3 % (0-3); EOS% 0.5 % (0-8); IMMATURE GRANULOCYTES 0.6 % (0.0-5.0); LYMPH% 17.6 % (15-41); MEAN CELL VOLUME 87.3 fL CALC (80.0-100.0); MEAN CORPUSCULAR HGB CONC 32.1 g/dL CAL (32.0-36.0); MONO% 4.9 % (2-13); NEUT# 8.96 thou/uL (2.00-7.15); NEUT% 76.1 % (42-76); RED BLOOD COUNT 5.5 mill/uL (4.20-5.60)
[2024-07-24 01:04] LABS: HEMOGLOBIN 15.4 g/dl (12.0-16.0)
[2024-07-24 01:14] LABS: HCG SERUM/URINE (NEG/POS) NEGATIVE (NEGATIVE)
[2024-07-24 01:16] LABS: CREATININE 0.6 mg/dL (0.5-1.0); POTASSIUM 3.8 mmol/l (3.5-5.1); TOTAL PROTEIN 8.6 g/dL (6.3-8.2)
[2024-07-24 01:17] LABS: ALBUMIN 4.7 g/dL (3.2-5.0); BILIRUBIN, TOTAL 0.7 mg/dL (0.02-1.3)
[2024-07-24 01:39] LABS: URINE BILIRUBIN - DIPSTICK Negative (NEGATIVE); URINE BLOOD DIPSTICK Negative (NEGATIVE); URINE GLUCOSE - DIPSTICK 500 mg/dL (NEGATIVE); URINE KETONE 15 mg/dL (NEGATIVE); URINE LEUK ESTERASE Negative (NEGATIVE); URINE NITRITE - DIPSTICK Negative (Negative); URINE PH 5.5 (4.5-8.0); URINE PROTEIN - DIPSTICK Negative (NEG-TRACE); URINE UROBILINOGEN - DIPSTICK 0.2 E.U./dL (0.2)
[2024-07-24 01:43] LABS: URINE COLOR Yellow
[2024-07-24] MEDS ORDERED: ANTI-DIARRHE2 M1 PO (01:57)
[2024-07-24] MEDS ORDERED: PROMETHAZINE HY25 M1 PO (01:57)
== END 2024-07-24 02:14 | disposition home or self-care (01) ==
LOC: ED 00:07
PROVIDERS: Family Medicine
DX: K52.9 Noninfective gastroenteritis and colitis, unspecified (principal); E11.65 Type 2 diabetes mellitus with hyperglycemia; I10 Essential (primary) hypertension; Z86.73 Personal history of transient ischemic attack (TIA), and cerebral infarction without residual deficits; Z79.85 Long-term (current) use of injectable non-insulin antidiabetic drugs; Z79.4 Long term (current) use of insulin; Z20.822 Contact with and (suspected) exposure to COVID-19